=== PATIENT | female | born 1980 | race American Indian/Alaskan Native ===

== ENCOUNTER 2019-05-24 09:15 | Emergency (ER) | payer MEDICARE ==
[2019-05-24 10:27] LABS: Basophils % (Auto) 0.4 % (0.0-1.8); Eosinophils # (Auto) 0.2 K/mm3 (0.0-0.4); Eosinophils % (Auto) 4.5 % (0.0-4.3); Hematocrit 43.5 % (30.3-42.9); Hemoglobin 14.3 gm/dl (10.1-14.3); Lymphocytes # (Auto) 1.8 K/mm3 (1.2-5.4); Lymphocytes % (Auto) 38.8 % (13.4-35.0); Mean Corpuscular HGB Conc 33 % (30-34); Mean Corpuscular Hemoglobin 29 pg (28-32); Mean Corpuscular Volume 89 fl (79-97); Monocytes # (Auto) 0.5 K/mm3 (0.0-0.8); Platelet Count 277 K/mm3 (140-440); Red Blood Count 4.91 M/mm3 (3.65-5.03); Red Cell Distribution Width 15.5 % (13.2-15.2)
[2019-05-24 10:48] LABS: Calcium 9.1 mg/dL (8.4-10.2)
[2019-05-24 11:00] LABS: Bilirubin,Urine NEG (Negative); Blood,Urine NEG (Negative); Color,Urine Yellow (Yellow); Mucus,Urine FEW /HPF; Protein,Urine <15 mg/dL mg/dL (Negative); Urobilinogen,Urine < 2.0 mg/dL (<2.0)
[2019-05-24 11:03] LABS: Benzodiazepines Screen,Urine PRESUMPTIVE NEGATIVE; Cannabinoid Screen,Urine PRESUMPTIVE NEGATIVE; Methadone Screen,Urine PRESUMPTIVE NEGATIVE; Opiate Screen,Urine PRESUMPTIVE NEGATIVE
[2019-05-24 11:15] LABS: Amphetamine Screen,Urine PRESUMPTIVE POSITIVE; Cocaine Screen,Urine PRESUMPTIVE POSITIVE
--- NOTE | 2019-05-24 11:31 | Emergency Department Report ---
HPI - General Chief Complaint: Psych Time Seen by Provider: 05/24/19 10:36 - HPI HPI: 39-year-old female presents to the emergency department with the complaint of fatigue and generalized weakness. She says that this going on for the past month or so and she has been to another emergency department recently for these symptoms. She has a past medical history of hypertension and asthma. The patient also complains of some paranoia and delusions. She has a history of schizophrenia and receives her InVega injections monthly but says that they are not working. She also is supposed to be on Seroquel but has not been compliant with this medication. The patient has some intermittent auditory and visual hallucinations. She feels like something is broadcasting to her. The patient complains of some nonspecific suicidal and homicidal ideations. ED Past Medical Hx - Past Medical History Previous Medical History?: Yes Hx Hypertension: Yes Hx Psychiatric Treatment: Yes (schizo) Hx Asthma: Yes - Surgical History Past Surgical History?: Yes Hx Cholecystectomy: Yes Additional Surgical History: tonsilectomy - Social History Smoking Status: Heavy Tobacco Smoker Substance Use Type: Cocaine - Medications Home Medications: Home Medications Medication Instructions Recorded Confirmed Last Taken Type Paliperidone Palmitate [Invega 156 mg IM QMONTH 05/24/19 05/24/19 Unknown History Sustenna] Quetiapine Fumarate [SEROquel] 50 mg PO QHS 05/24/19 05/24/19 Unknown History Tobramycin 0.3% [Tobrex] 1 drops OU Q4H #1 bottle 05/24/19 Unknown Rx ED Review of Systems ROS: Stated complaint: WEAK/BP HIGH/MH Other details as noted in HPI Constitutional: weakness, other (fatigue) Eyes: eye discharge. denies: vision change ENT: denies: ear pain, throat pain Respiratory: denies: cough, shortness of breath Cardiovascular: denies: chest pain, palpitations Gastrointestinal: denies: abdominal pain, vomiting Genitourinary: denies: dysuria, discharge Musculoskeletal: denies: back pain, arthralgia Skin: denies: rash, lesions Neurological: denies: headache, weakness Psychiatric: homicidal thoughts, suicidal thoughts Physical Exam - Physical Exam Vital Signs: Vital Signs 05/24/19 09:31 Temperature 98.2 F Pulse Rate 111 H Respiratory 16 Rate Blood Pressure 127/65 O2 Sat by Pulse 100 Oximetry Physical Exam: GENERAL: The patient is well-developed well-nourished. HENT: Normocephalic. Atraumatic. Patient has moist mucous membranes. EYES: Extraocular motions are intact. Pupils equal reactive to light bilaterally. The right conjunctiva is diffusely injected. There is some clearish white discharge. NECK: Supple. Trachea is midline. CHEST/LUNGS: Clear to auscultation. There is no respiratory distress noted. HEART/CARDIOVASCULAR: Regular. There is no tachycardia. There is no murmur. ABDOMEN: Abdomen is soft, nontender. Patient has normal bowel sounds. There is no abdominal distention. SKIN: Skin is warm and dry. NEURO: The patient is awake, alert, and oriented. The patient is cooperative. The patient has no focal neurologic deficits. The patient has normal speech. Cranial nerves II through XII grossly intact. MUSCULOSKELETAL: There is no tenderness or deformity. There is no limitation range of motion. There is no evidence of acute injury. ED Course Vital Signs 05/24/19 09:31 Temperature 98.2 F Pulse Rate 111 H Respiratory 16 Rate Blood Pressure 127/65 O2 Sat by Pulse 100 Oximetry ED Medical Decision Making - Lab Data Result diagrams: 05/24/19 10:07 05/24/19 10:07 - Radiology Data Radiology results: report reviewed CT head without contrast INDICATION : weakness. TECHNIQUE: Axial imaging performed from the skull apex through the skull base without the use of contrast. COMPARISON: None FINDINGS: Parenchyma: No acute intracranial hemorrhage or parenchymal abnormality. Ventricles: Ventricles are normal in size and appear symmetric. Soft tissues: Soft tissues including the orbits appear normal. Bones: No acute osseous abnormality. Sinuses: Sinuses and mastoid air cells are clear. IMPRESSION: No acute abnormality. - Medical Decision Making This is a 39-year-old female presents to the emergency department with the medical complaint of some nonspecific fatigue and weakness. On examination she does not have any focal, motor or sensory deficits in her cranial nerves are intact. CT scan of the head did not show any bleed, shift, mass, ischemia, or any other acute processes. Also on examination, the patient has some signs of a right sided conjunctivitis with diffusely injected conjunctiva and some clearish white discharge. She has been placed on Tobrex drops. The patient also complains of some paranoia, delusions, and some vague or nonspecific hess icidal and homicidal ideations. For this reason, the patient has been made a 1013. The rest of her labs have been unremarkable except for some mild renal insufficiency. Vital signs stable throughout her ED course. The patient may need to see a ultrasonic cleaner when she is done with her psychiatric workup, but otherwise is medically cleared. - Differential Diagnosis conjunctivitis, bipolar disorder, depression, schizoaffective, substance ab Critical Care Time: No Critical care attestation.: If time is entered above; I have spent that time in minutes in the direct care of this critically ill patient, excluding procedure time. ED Disposition Clinical Impression: Suicidal ideations, Homicidal ideations Conjunctivitis Qualifiers: Conjunctivitis type: acute Acute conjunctivitis type: unspecified Laterality: right Qualified Code(s): H10.31 - Unspecified acute conjunctivitis, right eye Schizophrenia Qualifiers: Schizophrenia type: unspecified Qualified Code(s): F20.9 - Schizophrenia, unspecified Disposition: DC/TX-65 PSY HOSP/PSY UNIT Is pt being admited?: No Condition: Stable Prescriptions: Tobramycin 0.3% [Tobrex] 1 drops OU Q4H #1 bottle Time of Disposition: 19:15
--- NOTE | 2019-05-24 12:55 | Cat Scan Report ---
CT head without contrast INDICATION : weakness. TECHNIQUE: Axial imaging performed from the skull apex through the skull base without the use of con trast. COMPARISON: None FINDINGS: Parenchyma: No acute intracranial hemorrhage or parenchymal abnormality. Ventricles: Ventricles are normal in size and appear symmetric. Soft tissues: Soft tissues including the orbits appear normal. Bones: No acute osseous abnormality. Sinuses: Sinuses and mastoid air cells are clear. IMPRESSION: No acute abnormality. Signer Name: Mateusz Kendall MD Signed: 05/24/2019 12:51 PM Workstation Name: [id number]
[2019-05-24] MEDS: TOBREX OU SCH ×3 (13:28→19:35)
[2019-05-25] MEDS: TOBREX OU SCH ×3 (00:41→07:25)
[2019-05-25 01:11] VITALS: BP 124/46
== END 2019-05-25 07:40 ==
LOC: ED 09:15
DX: F20.9 Schizophrenia, unspecified (principal); H10.9 Unspecified conjunctivitis; R53.1 Weakness; R53.83 Other fatigue; I10 Essential (primary) hypertension; J45.909 Unspecified asthma, uncomplicated; F17.200 Nicotine dependence, unspecified, uncomplicated; F14.10 Cocaine abuse, uncomplicated; Z90.89 Acquired absence of other organs; Z90.49 Acquired absence of other specified parts of digestive tract; Z88.8 Allergy status to other drugs, medicaments and biological substances
CPT/HCPCS: 36415; 70450; 80048; 80307; 80320; 81001; 84443; 84484; 84703; 85025; 87086; 93005; 93010; G0480

== ENCOUNTER 2019-05-28 09:24 | Emergency (ER) | payer MEDICARE ==
[2019-05-28 09:33] VITALS: BP 143/77
--- NOTE | 2019-05-28 10:56 | Emergency Department Report ---
ED General Adult HPI - General Chief complaint: Eye Problems Stated complaint: EYES DRAINING/IRRITATED Time Seen by Provider: 05/28/19 10:29 Source: patient Mode of arrival: Ambulatory Limitations: No Limitations - History of Present Illness Initial comments: The patient presents to the emergency department with a chief complaint of drainage from her right eye for 3 weeks. Patient states she's been to 2 separate emergency department and has received in a bike eyedrops with no relief. Patient denies any visual changes or pain to the right eye. 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 -: Gradual Location: eyes Radiation: non-radiation Severity scale (0 -10): 0 Consistency: constant Improves with: none Worsens with: none Associated Symptoms: denies other symptoms Treatments Prior to Arrival: none - Related Data Home Medications Medication Instructions Recorded Confirmed Last Taken Paliperidone Palmitate [Invega 156 mg IM QMONTH 05/24/19 05/24/19 Unknown Sustenna] Quetiapine Fumarate [SEROquel] 50 mg PO QHS 05/24/19 05/24/19 Unknown Previous Rx's Medication Instructions Recorded Last Taken Type Tobramycin 0.3% [Tobrex] 1 drops OU Q4H #1 bottle 05/24/19 Unknown Rx Amoxicillin/Potassium Clav 1 each PO BID #14 tablet 05/28/19 Unknown Rx [Augmentin 875-125 Tablet] Erythromycin [Erythromycin Ophth 10 applic OP TID #1 tube 05/28/19 Unknown Rx Oint] Allergies Allergy/AdvReac Type Severity Reaction Status Date / Time risperidone [From Risperdal] Allergy Unknown Verified 10/31/14 00:46 ED Review of Systems ROS: Stated complaint: EYES DRAINING/IRRITATED Other details as noted in HPI Comment: All other systems reviewed and negative Constitutional: denies: chills, fever Eyes: denies: eye pain, eye discharge, vision change ENT: denies: ear pain, throat pain Respiratory: denies: cough, shortness of breath, wheezing Cardiovascular: denies: chest pain, palpitations Endocrine: no symptoms reported Gastrointestinal: denies: abdominal pain, nausea, diarrhea Genitourinary: denies: urgency, dysuria, discharge Musculoskeletal: denies: back pain, joint swelling, arthralgia Skin: denies: rash, lesions Neurological: denies: headache, weakness, paresthesias Psychiatric: denies: anxiety, depression Hematological/Lymphatic: denies: easy bleeding, easy bruising ED Past Medical Hx - Past Medical History Previous Medical History?: Yes Hx Hypertension: Yes Hx Psychiatric Treatment: Yes (schizo) Hx Asthma: Yes - Surgical History Past Surgical History?: Yes Hx Cholecystectomy: Yes Additional Surgical History: tonsilectomy, cholestectomy - Social History Smoking Status: Current Every Day Smoker Substance Use Type: None - Medications Home Medications: Home Medications Medication Instructions Recorded Confirmed Last Taken Type Paliperidone Palmitate [Invega 156 mg IM QMONTH 05/24/19 05/24/19 Unknown History Sustenna] Quetiapine Fumarate [SEROquel] 50 mg PO QHS 05/24/19 05/24/19 Unknown History Tobramycin 0.3% [Tobrex] 1 drops OU Q4H #1 bottle 05/24/19 Unknown Rx Amoxicillin/Potassium Clav 1 each PO BID #14 tablet 05/28/19 Unknown Rx [Augmentin 875-125 Tablet] Erythromycin [Erythromycin Ophth 10 applic OP TID #1 tube 05/28/19 Unknown Rx Oint] ED Physical Exam - General Limitations: No Limitations General appearance: alert, in no apparent distress - Head Head exam: Present: atraumatic, normocephalic - Eye Eye exam: Present: normal appearance, PERRL, EOMI, scleral icterus, other (drainage from the right eye). Absent: periorbital swelling, periorbital tenderness - ENT ENT exam: Present: mucous membranes moist - Neck Neck exam: Present: normal inspection - Respiratory Respiratory exam: Present: normal lung sounds bilaterally. Absent: respiratory distress - Cardiovascular Cardiovascular Exam: Present: regular rate, normal rhythm. Absent: systolic murmur, diastolic murmur, rubs, gallop - Extremities Exam Extremities exam: Present: normal inspection - Back Exam Back exam: Present: normal inspection - Neurological Exam Neurological exam: Present: alert, oriented X3 - Psychiatric Psychiatric exam: Present: normal affect, normal mood - Skin Skin exam: Present: warm, dry, intact, normal color. Absent: rash ED Course Vital Signs 05/28/19 09:31 Temperature 97.8 F Pulse Rate 97 H Respiratory 17 Rate Blood Pressure 143/77 O2 Sat by Pulse 100 Oximetry ED Medical Decision Making - Medical Decision Making Discussed the need of the patient to follow up with slider assembler or substation operator chief Critical care attestation.: If time is entered above; I have spent that time in minutes in the direct care of this critically ill patient, excluding procedure time. ED Disposition Clinical Impression: Conjunctivitis Disposition: DC-01 TO HOME OR SELFCARE Is pt being admited?: No Does the pt Need Aspirin: No Condition: Stable Instructions: Conjunctivitis (ED) Additional Instructions: return if worse Prescriptions: Amoxicillin/Potassium Clav [Augmentin 875-125 Tablet] 1 each PO BID #14 tablet Erythromycin [Erythromycin Ophth Oint] 10 applic OP TID #1 tube Referrals: ABIEL ARIZMENDI MD [Staff Physician] - 3-5 Days Time of Disposition: 10:55
== END 2019-05-28 11:04 | disposition home or self-care (01) ==
LOC: ED 09:24
DX: H10.9 Unspecified conjunctivitis (principal); I10 Essential (primary) hypertension; F20.9 Schizophrenia, unspecified; J45.909 Unspecified asthma, uncomplicated; F17.200 Nicotine dependence, unspecified, uncomplicated; Z90.49 Acquired absence of other specified parts of digestive tract; Z79.899 Other long term (current) drug therapy; Z88.8 Allergy status to other drugs, medicaments and biological substances
CPT/HCPCS: 99282